=== PATIENT | female | born 1975 | race Caucasian/White ===

== ENCOUNTER 2016-10-22 20:51 | Observation (INO) ==
[2016-10-22 22:00] LABS: Basophils # 0.1 K/mcL (0.0-0.2); Eosinophils # 0.2 K/mcL (0.0-0.6); Eosinophils % 2.8 %; Hematocrit 40.3 % (35.3-44.9); Hemoglobin 13.4 g/dL (11.5-15.4); Immature Granulocytes % 0.1 % (0-4); Immature Platelets 2.9 % (1.1-6.1); Lymphocytes # 2.6 K/mcL (0.6-4.6); Lymphocytes % 36.6 %; Mean Corpuscular HGB Conc 33.3 g/dL (31.6-35.5); Mean Corpuscular Volume 87.2 fL (83.0-100.0); Mean Platelet Volume 9.8 fL (9.4-12.4); Monocytes # 0.4 K/mcL (0.0-1.3); Monocytes % 5.9 %; Neutrophils # 3.8 K/mcL (1.6-8.9); Platelet Count 279 K/mcL (140-400); Red Blood Count 4.62 M/mcL (3.82-4.97); Red Cell Distribution Width 13.4 % (11.5-14.5); Segmented Neutrophils % 53.6 %
[2016-10-22 22:11] LABS: BUN/Creatinine Ratio 15 (6-26); Blood Urea Nitrogen 15 mg/dL (7-20); Calcium 9.7 mg/dL (8.6-10.8); Carbon Dioxide 23 mEq/L (19-29); Chloride 109 mEq/L (98-109); Glucose 106 mg/dL (70-99); Osmolality,Calculated 295 (280-300); Potassium 4.1 mEq/L (3.5-4.5); Sodium 142 mEq/L (136-145); eGFR For African Americans > 60 (> 60); eGFR For Non-African Americans > 60 (> 60)
[2016-10-22] MEDS ORDERED: 0.9 % Sodium Chloride 1,000 ML IVC ONE (23:22)
[2016-10-22] MEDS: Nitroglycerin 0.4 MG TAB.SUBL SL PRN ×2 (23:37→23:44)
--- NOTE | 2016-10-23 00:31 | Emergency Department Note ---
Disposition Clinical Impression: Near syncope Chest pain Qualifiers: Chest pain type: other chest pain Qualified Code(s): R07.89 - Other chest pain Disposition: Admitted As Inpatient Chest Pain HPI - General Chief Complaint: ED Chest Pain Stated Complaint: dizzyx 2 days/cp x 2 days Time Seen by Provider: 10/22/16 23:01 Source: patient Mode of arrival: private vehicle Limitations: no limitations Vital Signs Reviewed: Yes Nursing Notes Reviewed: Yes - History of Present Illness HPI Narrative: 41-year-old female history of GERD and anxiety who presents to the ER due to near syncope and chest pain. Patient states that yesterday she had substernal chest pressure. She also felt lightheaded like she was going to pass out. She denies syncope. States that today she again felt chest pressure and became lightheaded. She again denies a syncopal episode at this time. Patient presents still complaining of chest pressure. She reports she feels short of breath during these times. It lasts for roughly 10 minutes and goes away. She denies any history of PE. She did have a history of to provoke DVTs in the past after surgery. No other complaints. Pt complaint: chest pain, other (near syncope) Onset (ago): day(s) Duration: intermittent Onset: during rest Pain Location: left chest Severity: mild Severity scale (1-10): 0 Quality: heaviness Pain Radiation: none Improves with: nothing Worsens with: nothing Associated symptoms: Denies: nausea, vomiting, diaphoresis, dyspnea Treatments prior to arrival chest pain: none - Related Data On Oral Contraceptives: No Home Medications Medication Instructions Recorded Confirmed ALPRAZolam [Xanax 0.5 MG Tablet] 0.5 mg PO TID PRN #0 10/29/14 10/23/16 Previous Rx's Medication Instructions Recorded Azithromycin [Azithromycin 6-Tab 250 mg PO PER PKG DI #6 tab 10/23/16 Pack] Ciprofloxacin HCl/Dexameth 7.5 ml OT BID #3 drops.susp 10/23/16 [Ciprodex Otic Suspension] Meclizine [Antivert] 25 mg PO BID #14 tablet 10/23/16 Allergies Allergy/AdvReac Type Severity Reaction Status Date / Time mushroom Allergy Anaphylaxis Verified 10/29/14 11:37 Tetracycline Allergy Rash Verified 10/29/14 11:37 All systems ED: reviewed and negative except as stated. Constitutional: Denies: fever Cardiovascular: Reports: chest pain. Denies: dyspnea on exertion Respiratory: Reports: dyspnea. Denies: cough, wheezes Gastrointestinal: Denies: abdominal pain, nausea, vomiting, diarrhea Chest Pain PMH - Past Medical History Medical history: Reports: no medical history, cancer Psychiatric history: Reports: anxiety - Social History Smoking Status: Unknown if ever smoked Alcohol use: Reports: occasionally Drug use: Reports: none Physical Exam - General Limitations: no limitations General appearance: alert, in no apparent distress - Head Head exam: atraumatic, normocephalic, normal inspection - Eye Eye exam: Present: normal appearance, EOMI - ENT ENT exam: normal exam - Neck Neck exam: Present: normal inspection, full ROM - Chest Chest inspection: Present: normal inspection, symmetric chest wall rise - Respiratory Respiratory exam: Present: normal lung sounds bilaterally - Cardiovascular Cardiovascular exam: Present: regular rate, normal rhythm, normal heart sounds - Abdominal Exam Abdominal exam: Present: soft, Non-Tender. Absent: tenderness - Extremities Exam Extremities exam: Present: normal inspection, full ROM - Expanded Upper Extremity Exam Shoulder exam: Present: normal inspection, full ROM Arm exam: Present: normal inspection, full ROM Elbow exam: Present: normal inspection, full ROM Forearm/Wrist exam: Present: normal inspection, full ROM Hand exam: Present: normal inspection, full ROM Vascular exam: Normal: radial pulse - Expanded Lower Extremity Exam Hip/Pelvis exam: Present: normal inspection, full ROM Upper leg exam: Present: normal inspection, full ROM Knee exam: Present: normal inspection, full ROM Lower leg exam: Present: normal inspection, full ROM Ankle exam: Present: normal inspection, full ROM Foot/toe exam: Present: normal inspection, full ROM Neurovascular/Tendon exam: Absent: motor deficit, sensory deficit - Neurological Exam Neurological exam: Present: alert, other (GCS 15. Nonfocal neurologic exam. Moves all extremities equally. No nystagmus on exam.) - Psychiatric Psychiatric exam: Present: normal affect, normal mood - Skin Skin exam: Present: warm, dry, intact, normal color Course Course Narrative: Patient seen and examined. She still reports to have continued chest pressure. We will trial her with nitroglycerin as well as obtain an EKG, chest x-ray as well as labs including troponin. We will give her a liter of IV fluids and reassess. Vital Signs Temperature 98.3 F 08/28/17 20:58 Pulse Rate 61 10/22/16 20:58 Respiratory Rate 16 10/22/16 20:58 Blood Pressure 125/84 10/22/16 20:58 O2 Sat by Pulse Oximetry 99 10/22/16 20:58 Temperature 98.5 F 10/23/16 15:10 Pulse Rate 59 10/23/16 15:10 Respiratory Rate 18 10/23/16 15:10 Blood Pressure 125/93 10/23/16 15:10 O2 Sat by Pulse Oximetry 96 10/23/16 15:10 Oxygen Delivery Oxygen Delivery Room Air Chest Pain - MDM Narrative Medical decision making narrative: 41-year-old female presents to the ER due to multiple episodes of chest pain and near syncope. Her EKG here is nonischemic. Chest x-ray unremarkable. First troponin is negative. Patient's chest pain resolved with nitroglycerin here. Patient admitted to the hospitalist service for further evaluation. - Lab Data Lab results reviewed: Yes I reviewed the patient's lab results. Result diagrams: 10/22/16 21:50 10/22/16 21:50 Lab Results 10/22/16 10/22/16 10/22/16 Range/Units 21:50 21:50 21:50 WBC 7.1 (4.3-11.1) K/mcL RBC 4.62 (3.82-4.97) M/mcL Hgb 13.4 (11.5-15.4) g/dL Hct 40.3 (35.3-44.9) % MCV 87.2 (83.0-100.0) fL MCH 29.0 (28.0-33.3) pg MCHC 33.3 (31.6-35.5) g/dL RDW 13.4 (11.5-14.5) % Plt Count 279 (140-400) K/mcL MPV 9.8 (9.4-12.4) fL Immature Gran % 0.1 (0-4) % Seg Neutrophils % 53.6 % Lymphocytes % 36.6 % Monocytes % 5.9 % Eosinophils % 2.8 % Basophils % 1.0 % Neutrophils # 3.8 (1.6-8.9) K/mcL Lymphocytes # 2.6 (0.6-4.6) K/mcL Monocytes # 0.4 (0.0-1.3) K/mcL Eosinophils # 0.2 (0.0-0.6) K/mcL Basophils # 0.1 (0.0-0.2) K/mcL Immature Plt Fraction 2.9 (1.1-6.1) % Sodium 142 (136-145) mEq/L Potassium 4.1 (3.5-4.5) mEq/L Chloride 109 (98-109) mEq/L Carbon Dioxide 23 (19-29) mEq/L BUN 15 (7-20) mg/dL Creatinine 1.00 (0.57-1.11) mg/dL Est GFR ( Amer) > 60 (> 60) Est GFR (Non-Af Amer) > 60 (> 60) BUN/Creatinine Ratio 15 (6-26) Glucose 106 H (70-99) mg/dL Calculated Osmolality 295 (280-300) Calcium 9.7 (8.6-10.8) mg/dL Troponin I 0.00 (0-0.03) ng/mL Beta HCG, Quant (0-4) mIU/ml 10/23/16 Range/Units 02:03 WBC (4.3-11.1) K/mcL RBC (3.82-4.97) M/mcL Hgb (11.5-15.4) g/dL Hct (35.3-44.9) % MCV (83.0-100.0) fL MCH (28.0-33.3) pg MCHC (31.6-35.5) g/dL RDW (11.5-14.5) % Plt Count (140-400) K/mcL MPV (9.4-12.4) fL Immature Gran % (0-4) % Seg Neutrophils % % Lymphocytes % % Monocytes % % Eosinophils % % Basophils % % Neutrophils # (1.6-8.9) K/mcL Lymphocytes # (0.6-4.6) K/mcL Monocytes # (0.0-1.3) K/mcL Eosinophils # (0.0-0.6) K/mcL Basophils # (0.0-0.2) K/mcL Immature Plt Fraction (1.1-6.1) % Sodium (136-145) mEq/L Potassium (3.5-4.5) mEq/L Chloride (98-109) mEq/L Carbon Dioxide (19-29) mEq/L BUN (7-20) mg/dL Creatinine (0.57-1.11) mg/dL Est GFR ( Amer) (> 60) Est GFR (Non-Af Amer) (> 60) BUN/Creatinine Ratio (6-26) Glucose (70-99) mg/dL Calculated Osmolality (280-300) Calcium (8.6-10.8) mg/dL Troponin I (0-0.03) ng/mL Beta HCG, Quant 2 (0-4) mIU/ml - Radiology Data Radiology results reviewed: Yes I reviewed the patient's radiology results. Chest X-Ray 10/22/16 21:24 IMPRESSION: 1. No active pulmonary disease. D/ / Benji Ann MD / Benji Ann MD Interpreting Provider: Benji Ann MD - EKG Data EKG attestation: Yes I reviewed and interpreted this EKG. EKG results narrative: EKG demonstrates sinus rhythm with rate of 81 bpm. Normal axis. Normal intervals. No ST elevations or depressions. No acute ischemic findings. No significant changes from previous EKG dated 10/22/09. Heart Score - Score History: Moderately Suspicious EKG: Normal Age: Less than 45 Risk Factors: No risk factors known Troponin: Less than normal limit HEART Score Total: 1 S.B.A.R. - S.B.A.RErik Situation: Demographics, MOA Background: Presenting Complaint, Relevant PMH, Meds, & Allergies Assessment: Vital Signs, Course and respsone to treatment, Exam Concerns, Patient/Family Expectation, Pertinant Lab Results, Outstanding Labs Recommendation: Barrier(s) to disposition, Recommendation based on pending studies, treatments, or consults S.B.A.R. Report Given to: Dr. Papito [email or web address] Repor Time: 02:16 (Requests test) Attestation Statement - Attestation Attestation: I examined this patient and my medical decision-making was reviewed with the Resident Physician, Dr. Arteaga. I agree with the documented findings, disposition and treatment plan as described except to the extent set forth below. Pt is a 41 yo wf, with c/o syncope and CP. Pt with substernal "pressure, like someone sitting on my chest", with SOB and lightheadedness. Pt never had sxs like this before. I agree with PE findings as documented. EKG without ischemic changes. Labs and CXR wnl. Pt with complete relief of sxs after ASA, nitro. Pt admitted for further eval of CP/syncope to hospitalist.
[2016-10-23] MEDS ORDERED: Nitroglycerin 1 INCH/GM PACKET TP ONE (01:01)
[2016-10-23] MEDS ORDERED: *HR* Morphine 2 MG/ML SYRINGE IVP PRN (03:18)
[2016-10-23] MEDS ORDERED: Acetaminophen 325 MG TABLET PO PRN (03:18)
[2016-10-23] MEDS ORDERED: Naloxone 0.4 MG/ML INJ IVP PRN (03:18)
--- NOTE | 2016-10-23 04:02 | Internal Med History&Physical ---
Date of Encounter: 10/23/16 Time of Encounter: 03:55 Assessment and Plan (1) Chest pain Current visit: Yes Status: Acute sudden onset of chest pressure 2 days ago, history of DVT x 2, feeling some air hunger. Also, pressure improved with NG, father had cardiac arrest at age 52. - check CTA r/o PE - check serial troponin, EKG, r/o ACS - If ACS ruled out, check exercise stress echo r/o IHD - telemetry - give ASA now - hold heparin gtt for now Qualifiers: Chest pain type: other chest pain Qualified Code(s): R07.89 - Other chest pain; R07.8 - Other chest pain (2) Near syncope Current visit: Yes Status: Acute unclear etiology, acute worsening of chronic dizziness, now with frequent near syncope episodes. No fall recently. - plan as above - check orthostatic vitals - if major cardiac and pulmonary etiology ruled out, OP f/u with cardiology (3) History of DVT (deep vein thrombosis) Current visit: Yes Status: Acute plan as above - start DVT prophylaxis if prolonged hospital stay (4) MARCO ANTONIO (generalized anxiety disorder) Current visit: Yes Status: Acute stable - Xanax bid prn (rarely uses at baseline) Internal Medicine - H&P: HPI Chief complaint: chest pressure, dizziness Admitted From: Emergency Dept History of present illness: 41W with prior history of MARCO ANTONIO, syncope and provoked DVT x 2 has presented with dizziness and chest pressure. 1. Dizziness, acute on chronic, for 5 days. Episodic. Feels that room spins and associated with lightheadedness. Lasts for 1 min or less. Induced by 's hug, but has happened spontaneously while at work. No fall. Also has remote history of syncopal episodes, worked up at [facility], and thought o be due to MARCO ANTONIO. 2. Chest pressure, episodic for 2 days. Several mild episodes, but 2 major episodes lasting for 30 minutes or more. First episode happened 2 days ago, sudden in onset, right sided chest pressure without pain. Non-exertional. Associated with air hunger but no dyspnea, followed by coughing spell. feels that it slowly resolved with deep breaths. Also was dizzy and clammy. Second episode yesterday, did not resolve until after nitropaste was applied and 2 doses of NG SL were given. No recent travel. No sick contacts. Fatigue for a few days. Headache after NG. Right ear pain for 4 days. Nausea. A 10-point ROS is negative for palpitations, eye symptoms, fevers, rigors, chills, vomiting, abdominal pain, d, c, dysuria, focal motor deficits or other symptoms. PMH/PSH: - Generalized anxiety disorder, in remission, well controlled on rare prn Xanax - History syncopal episodes several years ago, attributed to MARCO ANTONIO - DVT, provoked x 2, post-op - Ovarian cancer at age 19 s/p oophorectomy, chemoradiation - GERD s/p [place] fundoplication - T&A - Herniorrhaphy x 2 - Cholecystectomy - Appendectomy - Laparoscopic knee surgery SH: Lifelong non-smoker. Occasional wine. No drug use. FH: Father-cardiac arrest at age 52. Mother-HTN. GM-Ovarian cancer. Past Med Surg Social Fam HX - Past Medical History Medical history: no medical history, cancer Psychiatric history: anxiety - Past Surgical History Surgical History: hysterectomy - Social History Smoking Status: Unknown if ever smoked Smokeless Tobacco Status: No Alcohol use: occasionally Drug use: none - Family History Father Age at : 52 Cause of : cardiac arrest Hx Family Cardiac Disorders: Yes Internal Medicine - H&P: Meds ALPRAZolam [Xanax 0.5 MG Tablet] 0.5 mg PO TID PRN #0 10/29/14 [History] 3 Allergy/AdvReac Type Severity Reaction Status Date / Time mushroom Allergy Anaphylaxis Verified 10/29/14 11:37 Tetracycline Allergy Rash Verified 10/29/14 11:37 All Systems PM: A 10-system review of systems was performed and is negative for pertinent findings except as documented above in the HPI. - Constitutional Vitals: Temp Pulse Resp BP Pulse Ox 98.0 F 55 16 103/69 98 10/23/16 03:22 10/23/16 03:22 10/23/16 03:22 10/23/16 03:22 10/23/16 03:22 General appearance: Present: A&O X 3, pleasant, no acute distress - Head Head exam: Present: atraumatic, normocephalic - Eye Eye exam: Present: PERRL, conjuntiva pink, sclera anicteric Pupils: Present: PERRL - Neck Neck exam general surgery: Present: supple, trachea midline. Absent: nuchal rigidity - Respiratory Respiratory exam: Present: CTAB. Absent: accessory muscle use, rales, rhonchi, wheezes - Cardiovascular Cardiovascular exam: Present: RRR, +S1, +S2. Absent: diastolic murmur, gallop, rubs, systolic murmur - GI/Abdominal GI/Abdominal exam: Present: normal bowel sounds, soft, no peritoneal signs. Absent: distended, guarding, rebound, tenderness - Extremities Exam Extremities exam: Present: warm, radial pulses palpable and symmetrical. Absent : calf tenderness, cyanotic, pedal edema - Neurological Exam Neurological exam: Present: CN II-XII intact, oriented X3, no focal deficits. Absent: facial droop, speech deficit - Psychiatric Psychiatric exam: Present: normal affect, normal mood - Skin Skin exam: Present: dry, intact Internal Med - H&P Results - Labs CBC & Chem 7: 10/22/16 21:50 10/22/16 21:50 - EKG Data -: EKG Interpreted by Myself (Sinus 81 bpm, [place] cute ischemic changes, QTc 413) - Diagnostic Studies Chest x-ray Status: image reviewed by me (no acute abnormality)
[2016-10-23] MEDS ORDERED: ALPRAZolam 0.5 MG TABLET PO PRN (05:48)
[2016-10-23] MEDS ORDERED: Aspirin 325 MG TABLET PO ONE (05:48)
[2016-10-23 13:58] LABS: Amphetamine Screen,Urine Negative ng/mL (Cutoff=1000); Barbiturate Screen,Urine Negative ng/mL (Cutoff=200); Benzodiazepines Screen,Urine Negative ng/mL (Cutoff=200); Cannabinoid Screen,Urine Negative ng/mL (Cutoff = 50); Cocaine Screen,Urine Negative ng/mL (Cutoff= 300); Opiate Screen,Urine Negative ng/mL (Cutoff=300); Phencyclidine Screen,Urine Negative ng/mL (Cutoff=25)
[2016-10-23 15:11] VITALS: BP 125/93
--- NOTE | 2016-10-23 17:07 | Electrocardiograph Report ---
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
--- NOTE | 2016-10-23 17:40 | Discharge Summary ---
Date of Encounter: 10/23/16 Time of Encounter: 16:20 - Discharge Diagnosis (1) Chest pain Priority: Primary Status: Acute Comments: Pt reports pain to right upper chest and right shoulder during evaluation, rates it 2/10. She initially reports sharp chest pain/pressure in her mid chest and dizziness She reports nausea, SOB and chest heaviness while eating last night. Lungs are clear, Troponins negative, stress echo negative, and chest CTA negative for PE or acute pulmonary abnormality. Qualifiers: Chest pain type: other chest pain Qualified Code(s): R07.89 - Other chest pain; R07.8 - Other chest pain (2) Otitis externa Priority: Secondary Status: Acute Comments: Pt with 4 day history of right ear pain. Pt with redness in right ear canal, pain with traction to pinna and pain with insertion of otoscope. Pt states that she got water in her ear in the shower 4-5 days ago, denies inserting anything into ear canal. Will treat with topical antibiotics. Qualifiers: Otitis externa type: unspecified type Chronicity: acute Laterality: left Qualified Code(s): H60.502 - Unspecified acute noninfective otitis externa, left ear (3) Near syncope Priority: Secondary Status: Acute Comments: Pt staes that she has had dizziness x 1 week which has been increasing in frequency. Pt states that she has fallen and had 3 episodes night before last while at work. 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 She does report that she used to faint frequently and that was a sign of the onset of a panic attack. She denies stress currently and reports that this is a different presentation that her prior anxiety attacks. Episodes could be related to anxiety, OE, possible bronchitis, dehydration, or fatigue from working nightshift. All testing related to cardiac etiology has been negative. Pt does report ear pain with pain and swelling to r ear canal and new cough that could be bronchitis. Pt denies dizziness at this time, will send her home with rx for OE and cough medicine, as well as Antivert foruse for dizziness prn. (4) History of DVT (deep vein thrombosis) Priority: Secondary Status: Chronic Comments: No DVT currently. History. CTA negative for PE. No uni or bilateral leg swelling or pain. (5) MARCO ANTONIO (generalized anxiety disorder) Priority: Secondary Status: Chronic Comments: Pt denies anxiety. Prior history of syncope with anxiety attack. Pt takes Xanax prn rarely and denies any new stress. - Discharge Medications Prescriptions: Azithromycin [Azithromycin 6-Tab Pack] 250 mg PO PER PKG DI #6 tab Ciprofloxacin HCl/Dexameth [Ciprodex Otic Suspension] 7.5 ml OT BID #3 drops.susp Meclizine [Antivert] 25 mg PO BID #14 tablet Home Medications: ALPRAZolam [Xanax 0.5 MG Tablet] 0.5 mg PO TID PRN #0 10/29/14 [History] Azithromycin [Azithromycin 6-Tab Pack] 250 mg PO PER PKG DI #6 tab 10/23/16 [Rx] Ciprofloxacin HCl/Dexameth [Ciprodex Otic Suspension] 7.5 ml OT BID #3 drops.susp 10/23/16 [Rx] Meclizine [Antivert] 25 mg PO BID #14 tablet 10/23/16 [Rx] Allergies/Adverse Reactions: 3 Allergy/AdvReac Type Severity Reaction Status Date / Time mushroom Allergy Anaphylaxis Verified 10/29/14 11:37 Tetracycline Allergy Rash Verified 10/29/14 11:37 Procedures/tests Complete & Pending: Procedures Performed prior 72 hours Category Date Time Status CT angio chest [CT] Routine Cat Scan 10/23/16 10:00 Completed ECG 12 lead ECG [ECG] AM 0600 Y 10/23/16 06:00 Ordered EV stress echo Routine Y 10/23/16 05:49 Completed Date of admission: 10/23/16 02:28 Primary care physician: Jayson Teran MD Discharging clinician: Saranya Torres Anticipated date of discharge: 10/23/16 - Patient Status Disposition: Home, Self-Care Functional capacity at discharge: independent ambulation Overall status at discharge: patient is back to baseline - Discharge Instructions Follow Up With: Jayson Teran MD [Primary Care Provider] - 10/30/16 2:00 pm Additional Instructions: Take your new medications as directed. Return to the ER as needed for new or worsening symptoms or problems. Return to your normal activities as tolerated. - Diet and Activity Activity: increase activity as tolerated Diet: advance to your usual diet Hospital course: Ms. Head is a 41 year old female with PMH of anxiety and DVT who presents to the ED with c/o 1 week history of dizziness and chest pressure. Pt states that dizziness has been increasing and that she has fallen due to being so dizzy. States that it lasts for less than 1 minute and has happened 3 times at work the other night while seated. She reports that she was eating last night began having nausea, shortness of breath and chest heaviness. She reports past medical history of fainting that was her initial sinuses have an anxiety attack was on Effexor. Her primary care physician took her off the Effexor and is only giving her Xanax right now. She reports that she is not stressed at all and has had no stressful situations in her life and rarely takes the Xanax. Patient has stress echo with appropriate increase in half with the stress, no segmental wall motion abnormalities, stress ECG/echocardiogram is negative for ischemia. Chest CTA was negative for pulmonary embolism or acute coronary abnormality. Chest x-ray was negative for any active pulmonary disease. EKG on admission showed sinus rhythm with short TN with a rate of 81, TN interval 118 QRS 83 QTC 413. Physical exam is unremarkable other than right OE. Right ear canal is tender on exam with redness and swelling in the canal. TM is clear with visible landmarks, no bulging, redness, no effusion. Patient reports that she got water in her hair and shower, she denies inserting anything into her ear canal. She reports 4-5 days of right ear pain, this could very well be the source of her dizziness. Patient also reports chest pressure and nonproductive cough. She reports some intermittent chest burning with inspiration, patient most likely with bronchitis. I am sending her home with a prescription for Cipro optic solution, a Z-Diomedes, and Antivert for dizziness when necessary. She has appointment with her primary care physician on October 30. Labs are within normal limits, vital signs are stable and within normal limits. Patient is safe and appropriate for discharge. - Time Spent with Patient Total time spent providing and/or coordinating discharge services: Less than 30 minutes - Constitutional Vitals: Temp Pulse Resp BP Pulse Ox 98.5 F 59 18 125/93 96 10/23/16 15:10 10/23/16 15:10 10/23/16 15:10 10/23/16 15:10 10/23/16 15:10 General appearance: Present: A&O X 3, pleasant, no acute distress - Head Head exam: Present: atraumatic, normocephalic - Eye Eye exam: Present: PERRL, conjuntiva pink, sclera anicteric Pupils: Present: PERRL - ENT ENT exam: Present: normal external ear exam, normal oropharynx, TM's normal bilaterally - Expanded ENT Exam Ear exam: Present: external canal tenderness canal tenderness: Right TM - Neck Neck exam general surgery: Present: supple, trachea midline. Absent: lymphadenopathy - Respiratory Respiratory exam: Present: CTAB. Absent: accessory muscle use, rales, rhonchi, wheezes - Cardiovascular Cardiovascular exam: Present: RRR, +S1, +S2. Absent: diastolic murmur, gallop, rubs, systolic murmur - GI/Abdominal GI/Abdominal exam: Present: normal bowel sounds, soft, no peritoneal signs. Absent: distended, tenderness - Extremities Exam Extremities exam: Present: warm, radial pulses palpable and symmetrical. Absent : calf tenderness, cyanotic, pedal edema - Neurological Exam Neurological exam: Present: CN II-XII intact, oriented X3, no focal deficits. Absent: pronater drift, facial droop, speech deficit - Skin Skin exam: Present: dry, intact
== END 2016-10-23 18:45 | disposition home or self-care (01) ==
LOC: 3BNU 20:51 → EMEROO 20:51 → 3BNU 10-23 02:54
PROVIDERS: ADMIT Internal Medicine; ATTEND Nurse Practitioner Family